=== PATIENT | female | born 1995 | race Caucasian/White ===

== ENCOUNTER → 2021-05-30 | Outpatient (CLI) | payer OTHER | END | disposition home or self-care (01) | LOC: US 13:44 | PROVIDERS: ATTEND Nurse Practitioner Women's Health | DX: N91.2 Amenorrhea, unspecified (principal) ==

== ENCOUNTER 2021-11-25 11:40 | Emergency (ER) | payer OTHER ==
[~2021-11-25] VITALS: Ht 160 cm; Wt 119.7 kg
[2021-11-25] MEDS ORDERED: TYLENOL325 M1 PO (12:02)
[2021-11-25] MEDS ORDERED: NAPROXEN250 MG PO (12:02)
== END 2021-11-25 12:07 | disposition home or self-care (01) ==
LOC: ED 11:40
DX: R07.89 Other chest pain (principal)

== ENCOUNTER 2022-11-08 20:43 | Emergency (ER) | payer OTHER ==
[~2022-11-08] VITALS: Ht 160 cm; Wt 110.7 kg
[~2022-11-08 20:43] MED LIST: NAPROXEN250 MG PO; TYLENOL325 M1 PO
[2022-11-08] MEDS ORDERED: METHOCARBAMOL500 M1 PO (21:50)
[2022-11-08] MEDS ORDERED: PREDNISONE20 M1 PO (21:50)
== END 2022-11-08 22:01 | disposition home or self-care (01) ==
LOC: ED 20:43
DX: M54.50 Low back pain, unspecified (principal); F17.200 Nicotine dependence, unspecified, uncomplicated

== ENCOUNTER → 2023-09-07 | Outpatient (CLI) | payer OTHER ==
[~2023-09-07] MED LIST changes: +METHOCARBAMOL500 M1 PO; +PREDNISONE20 M1 PO
[2023-09-08 14:07] LABS: t-TRANSGLUTAMINASE (tTG) IGA <2 U/mL (0-3); t-TRANSGLUTAMINASE (tTG) IgG <2 U/mL (0-5)
== END | disposition home or self-care (01) ==
LOC: LAB 12:33
PROVIDERS: ATTEND Nurse Practitioner Family
DX: R19.7 Diarrhea, unspecified (principal)

== ENCOUNTER → 2024-07-02 | Outpatient (CLI) | payer OTHER | END | disposition home or self-care (01) | LOC: US 14:32 | PROVIDERS: ATTEND Nurse Practitioner Women's Health | DX: N91.2 Amenorrhea, unspecified (principal) ==